=== PATIENT | female | born 1980 | race Native Hawaiian/Other Pacific Islander ===

== ENCOUNTER 2017-10-28 06:22 | Inpatient (IN) | payer OTHER ==
[2017-10-28 07:00] VITALS: BMI 31.1
[2017-10-28] MEDS ORDERED: Sodium Citrate/Citric Acid 15 ml Sol PO ONE (07:10)
--- NOTE | 2017-10-28 07:11 | OBADHP ---
Datetime: 10/28/2017 07:04 Admit Comment, IP Provider: at 39.1weeks wit gesttional diabetic on glyburide with ctxs started last night, irrg, 12/22,no vb, lof+fm obhx primi pmh gdma2 med glyburide psh den soch de ve /-2 a/p at 39.1weeks with gdma2/macrosomia/abdoinal pain admit to l_d for primary section npo/ivf labs cont piyush and efm anthesua aware skin abiotic informd consent taken Pelvic Type - PN: Adequate Extremities - PN: Normal Abdomen - PN: Normal Back - PN: Normal Breast - PN: Normal Lungs - PN: Normal Heart - PN: Normal Thyroid - PN: Normal Neurologic - PN: Normal HEENT - PN: Normal General - PN: Normal FHR - Baseline A Provider: 140 Contraction Comments Provider: irrg Comments, ACOG Physical Exam: gavid,non tender ext no edema,no calf ten IP Hx Assessment: The History has been Reviewed and is Current Vital Signs Provider: Reviewed IP Chief Complaint: Uterine contractions NICHD Variability Prov Fetus A: Moderate 6-25bpm NICHD Accel Fetus A IP Provider: [id number] FHR Category Provider Fetus A: Category I Genitourinary Exam: Normal DTRs - PN: Normal EGA AdmitDate IP: 39.1 IP Adm Impression: Term, intrauterine IP Admit Plan: Admit to unit; Initiate Section protocol
[2017-10-28 07:45] LABS: BASO # 0.1 K/uL (0.0-0.2); BASO % 0.7 % (0.0-2.0); EOS # 0.4 K/uL (0.0-0.7); EOS % 5.1 % (0.0-4.0); HEMOGLOBIN 12.1 g/dL (11.0-16.0); LYMPH # 1.8 K/uL (1.0-4.3); LYMPH % 21.2 % (20.0-40.0); MEAN CORPUSCULAR HEMOGLOBIN 26.8 pg (27.0-31.0); MEAN CORPUSCULAR HGB CONC 33.9 g/dL (33.0-37.0); MEAN PLATELET VOLUME 7.3 fL (7.2-11.7); MONO # 0.7 K/uL (0.0-0.8); MONO % 8.5 % (0.0-10.0); NEUT # 5.4 K/uL (1.8-7.0); NEUT % 64.5 % (50.0-75.0); RBC 4.51 Mil/uL (3.80-5.20); RED CELL DISTRIBUTION WIDTH 14.3 % (11.5-14.5); WHITE BLOOD COUNT 8.4 K/uL (4.8-10.8)
[2017-10-28] MEDS ORDERED: Oxytocin 20 units in LR 2,000 ML IV ONE (07:49)
[2017-10-28 07:50] LABS: SQUAMOUS EPITHIAL 9 /hpf (0-5); URINE BACTERIA FEW (<OCC); URINE BILIRUBIN NEGATIVE (NEGATIVE); URINE BLOOD NEGATIVE (NEGATIVE); URINE CLARITY Hazy (Clear); URINE GLUCOSE (UA) NORMAL (Normal); URINE LEUKOCYTE ESTERASE 1+ Leu/uL (Negative); URINE NITRATE NEGATIVE (NEGATIVE); URINE PROTEIN 1+ mg/dL (NEGATIVE); URINE UROBILINOGEN NORMAL mg/dL (0.2-1.0)
[2017-10-28 07:53] LABS: URINE COLOR YELLOW (YELLOW)
[2017-10-28] MEDS ORDERED: Oxytocin 10 Units/ml Inj ONE (07:54)
[2017-10-28 07:55] LABS: CALCIUM 8.9 mg/dl (8.6-10.4); GFR AFRICAN-AMERICAN > 60; GFR NON-AFRICAN AMERICAN > 60
[2017-10-28 07:56] LABS: BLOOD UREA NITROGEN 6 mg/dL (7-17)
[2017-10-28] MEDS ORDERED: cefOXitin 2 GM in Sodium Chloride 0.9% 100 ML IVPB ONE (08:00)
[2017-10-28] MEDS: Lactated Ringer's 1,000 ML IV SCH ×2 (08:10→18:50)
[2017-10-28] MEDS ORDERED: Morphine 1 mg/ml preservative-free Inj(Duramorph) ONE (08:13)
[2017-10-28] MEDS ORDERED: ePHEDrine 50 mg/ml Inj ONE (08:28)
[2017-10-28] MEDS ORDERED: Oxycodone/Acetaminophen 5/325 mg Tab PO PRN ×2 (10:33→15:15)
[2017-10-28 11:59] LABS: HEPATITIS B SURFACE AG Negative (NEGATIVE)
[2017-10-28] MEDS: Simethicone 80 mg Chewtab PO SCH ×3 (14:00→21:42)
--- NOTE | 2017-10-28 18:45 | PCM.SURG1 ---
Surgeon's Initial Post Op Note - Surgeon's Notes Surgeon: Private pateint dr hayward Flatbed Driver: dr dumont Anesthesia Administered By: dr maldonado Pre-Operative Diagnosis: 37 yr at 39.1weeks/gd.a2/macrosomia/abdominal pain Operative Findings: see the op reort Post-Operative Diagnosis: same Operation Performed: primary section Specimen/Specimens Removed: cord blood. cord gas. placente Estimated Blood Loss: EBL {In ML}: 800 Blood Products Given: N/A Drains Used: No Drains Post-Op Condition: Good Date of Surgery/Procedure: 10/28/17 Time of Surgery/Procedure: 10:00
[2017-10-29] MEDS: Lactated Ringer's 1,000 ML IV SCH (02:59)
--- NOTE | 2017-10-29 03:49 | OP ---
PROCEDURE DATE: 10/28/2017 PREOPERATIVE DIAGNOSIS: A 37 years old 1, para 0, at 39 weeks and one day with abdominal pain, gestational diabetic, on gestational diabetes mellitus A2 and large for gestation. POSTOPERATIVE DIAGNOSIS: A 37 years old 1, para 0, at 39 weeks and one day with abdominal pain, gestational diabetic, on gestational diabetes mellitus A2, and large for gestation. SURGEON: Kaveh Fernandez MD STOCK TRACER: Dr. Florentino Roth, who was present throughout the surgery for exposure, retraction, pushing at the time of the delivery. ANESTHESIA: Spinal. ANESTHESIOLOGIST: Dr. Laurent. COMPLICATIONS: None. PROCEDURE PERFORMED: Primary section. DESCRIPTION OF PROCEDURE: After informed consent was obtained, the patient was brought to the operating room, placed on the table where spinal anesthesia was given. Once the anesthesia was given, the patient was prepped and draped in the normal sterile fashion. About 2 cm above the pubic bone, a skin incision was made with the knife, the subcutaneous cut with the Bovie. The fascia was then excised on both the sides using curved Spencer scissors. The fascia was first from the site of the umbilicus and other site of the pubic bone, rectus muscle was . Peritoneum was incised and we went into the abdominal cavity. Lower uterine segment incision was made with a knife, Bovie, and curved Spencer scissors. Baby was delivered in a direct occiput posterior position. Cord was clamped and cut. Baby was handed to the awaiting compliance attorney. Cord gas was taken. Cord blood was taken. Placenta delivered manually and sent to Pathology. Uterus was exteriorized and cleared of all clots and debris. Uterus was very boggy. Extra Pitocin was given. A lot of massage was done. After that, uterine incision was closed using #1 Vicryl in running interlocking fashion, second layer was closed with the same stitch. A lot of irrigation was done. Then the cul-de-sac was cleared of all the clots and debris. Uterus was returned back to abdominal cavity. Gutters were cleared of all the clots and debris. After that, peritoneum was closed using 2-0 Vicryl in running interlocking fashion. The muscle was closed using 2-0 Vicryl in running interlocking fashion. Fascia was closed using #1 Vicryl in running interlocking fashion. Subcutaneous tissue was closed with 0 Vicryl in interrupted fashion. Skin was closed using 3-0 Monocryl curved needle. Patient tolerated the procedure well. Lap, sponge, and instrument counts were correct x2. Kaveh Fernandez MD
[2017-10-29] MEDS: Oxycodone/Acetaminophen 5/325 mg Tab PO PRN ×4 (05:15→22:29)
--- NOTE | 2017-10-29 06:25 | OBPPN ---
Datetime: 10/29/2017 06:23 PP Pain Prov: Within normal limits PP Nausea Prov: Denies PP Flatus Prov: No PP Abdomen/Uterus Prov: Normal PP Lochia Prov: Normal PP C/S Incision Prov: Normal PP Comments Phys Exam Prov: fudus below umb ext miled micah dressing clean an dry PP Impression Prov: Normal progression PP Plan Prov: Continue present management PP Progress Note Prov: pt was seen at bed side, paij undeer control,no n/v, tolertaing liquid deit, waoiting to voiod,min lochia pod#1 s/p c/s cbc advance deit cont post op cont pain mich emcourage ambulation Vital Signs Provider PP: Within Normal Limits
--- NOTE | 2017-10-29 06:28 | OBDS ---
DELIVERY PERSONNEL Delivery Doctor: Yolanda Fernandez MD Scrub Nurse: Perri Fernandes [facility] Administrator: Candida Rodas RN Anesthesiologist: Dr. Alton Laurent Resident: DR. Christine Bowles MATERNAL INFORMATION Delivery Anesthesia: Spinal Medications in Delivery: Pitocin 40 units in 1000ml LR; Cytotec 1000mcg rectally by Estimated Blood Loss (ml): 800 Placenta Cultured: Yes Maternal Complications: None RN Comments: Liveborn BAby Boy. 9-9 Provider Comments: PRIVATE PATEINT baby deliverd in dop, end clean no com LABOR SUMMARY EDC: 11/03/2017 00:00 No. Babies in Womb: 1 Attempted: No Labor Anesthesia: None LABOR INFORMATION Reason for Induction: Not Applicable Oxytocin: N/A Group B Beta Strep: Negative Antibiotics # of Doses: 1 Antibiotics Time of Last Dose: Mefoxin 2gm IV 0854 Steroids Given: None Reason Steroids Not Administered: Not Applicable MEMBRANES Membranes Rupture Method: Artificial Rupture of Membranes: 10/28/2017 09:36 Length of Rupture (hrs): 0.02 Amniotic Fluid Color: Clear Amniotic Fluid Amount: Moderate Amniotic Fluid Odor: Normal STAGES OF LABOR Stage 3 hrs: 0 Stage 3 min: 1 CSECTION DELIVERY Primary Indication: N/A Other Primary Indication: macromia CSection Urgency: Elective CSection Incidence: Primary Labor: No Labor Elective: Elective CSection Incision: Lower Uterine Transverse BABY A INFORMATION Infant Delivery Date/Time: 10/28/2017 09:37 Method of Delivery: Vaginal Born in Route : No : N/A Forceps: N/A Vacuum Extraction: N/A Shoulder Dystocia : No SHOULDER DYSTOCIA BABY A Infant Delivery Date/Time: 10/28/2017 09:37 PRESENTATION/POSITION BABY A Presentation: Cephalic Cephalic Presentation: Vertex Vertex Position: Direct Occipital Posterior Breech Presentation: N/A PLACENTA INFORMATION BABY A Placenta Delivery Time : 10/28/2017 09:38 Placenta Method of Delivery: Manual Removal Placenta Status: Delivered SCORES BABY A Heart Rate 1 min: >100 bpm Resp Effort 1 min: Good Cry Reflex Irritability 1 min: Cough or Sneeze or Pulls Away Muscle Tone 1 min: Active Motion Color 1 min: Body Oasis, Extremities Blue Resuscitation Effort 1 min: N/A SCORE 1 MIN: 9 Heart Rate 5 min: >100 bpm Resp Effort 5 min: Good Cry Reflex Irritability 5 min: Cough or Sneeze or Pulls Away Muscle Tone 5 min: Active Motion Color 5 min: Body Oasis, Extremities Blue Resuscitation Effort 5 min: N/A SCORE 5 MIN: 9 INFANT INFORMATION BABY A Gestational Age at Delivery: 39.1 Gestational Status: Term Infant Outcome : Liveborn Infant Condition : Stable Sex: Male IDENTIFICATION/MEDS BABY A ID Band Number: [id number] ID Band Location: Left Leg; Left Arm Sensor Applied: Yes Sensor Number: [id number] Sensor Location : Cord Clamp Vitamin K Given : Not Given Erythromycin Given: Not Given WEIGHT/LENGTH BABY A Infant Birthweight (gms): 3595 Weight (lb): 7 Infant Weight (oz): 15 Length Inches: 19.50 Length cms: 49.5 CORD INFORMATION BABY A No. Cord Vessels: 3 Nuchal Cord : N/A Infant Cord pH Baby Arterial: 7.25 (Dr.Ghotra wadsworth) Cord Blood Taken: Yes Infant Suction: Mouth; Nose ASSESSMENT BABY A Infant Complications: None Physical Findings at Delivery: Within Normal Limits Infant Respirations: Appears Normal Kitchen Food Server/ALS Called : No Transferred To: [facility]
[2017-10-29 07:47] LABS: BASO # 0.1 K/uL (0.0-0.2); BASO % 0.4 % (0.0-2.0); EOS # 0.2 K/uL (0.0-0.7); EOS % 1.4 % (0.0-4.0); HEMOGLOBIN 11.3 g/dL (11.0-16.0); LYMPH # 1.2 K/uL (1.0-4.3); LYMPH % 8.6 % (20.0-40.0); MEAN CELL VOLUME 79.2 fL (81.0-99.0); MEAN PLATELET VOLUME 7.2 fL (7.2-11.7); MONO % 7.1 % (0.0-10.0); NEUT # 11.8 K/uL (1.8-7.0); NEUT % 82.5 % (50.0-75.0); PLATELET COUNT 237 K/uL (130-400); RED CELL DISTRIBUTION WIDTH 14.2 % (11.5-14.5)
[2017-10-29 07:48] LABS: WHITE BLOOD COUNT 14.3 K/uL (4.8-10.8)
[2017-10-29 08:58] LABS: BANDS 2 % (0-2); LYMPHOCYTE 8 % (20-40); MONOCYTE 8 % (0-10); NEUTROPHIL 82 % (50-75); PLATELET ESTIMATE NORMAL (NORMAL); TOTAL CELLS COUNTED 100
[2017-10-29 09:00] LABS: BURR CELLS SLIGHT; HYPOCHROMIC SLIGHT
[2017-10-29 09:01] LABS: ANISOCYTOSIS SLIGHT; POIKILOCYTOSIS SLIGHT; TOXIC GRANULATION PRESENT
[2017-10-29] MEDS: Simethicone 80 mg Chewtab PO SCH ×4 (10:13→22:24)
[2017-10-29] MEDS ORDERED: Bisacodyl 5mg EC Tab PO ONE (10:33)
[2017-10-30] MEDS: Simethicone 80 mg Chewtab PO SCH ×3 (10:05→22:03)
[2017-10-31 08:21] VITALS: BP 110/70; PULSE 79; TEMP 97.1; O2SAT 100
[2017-10-31] MEDS: Oxycodone/Acetaminophen 5/325 mg Tab PO PRN (09:40)
[2017-10-31] MEDS: Simethicone 80 mg Chewtab PO SCH ×2 (09:43→09:44)
[2017-10-31] MEDS ORDERED: Influenza Vaccine 60 mcg/0.5 mL SYR (4YR UP) IM ONE (12:39)
[2017-10-31 17:19] VITALS: RESP 20
== END 2017-10-31 13:19 | disposition home or self-care (01) | DRG 651 ==
LOC: C.EROB 06:22 → C.4D 07:03 → C.4M 13:50 → UNDODISIN 10-30 19:06
PROVIDERS: ADMIT Obstetrics & Gynecology; ATTEND Obstetrics & Gynecology
PROC: 10D00Z1 Extraction of Products of Conception, Low, Open Approach (ICD-10-PCS; principal; 2017-10-28)
DX: O24.429 Gestational diabetes mellitus in childbirth, unspecified control (principal); O36.63X0 Maternal care for excessive fetal growth, third trimester, not applicable or unspecified; Z3A.39 39 weeks gestation of pregnancy; Z37.0 Single live birth